=== PATIENT | female | born 1985 | race Caucasian/White ===

== ENCOUNTER 2019-09-03 07:35 | Outpatient (CLI) | payer BC, SELFPAY ==
--- NOTE | ~2019-09-03 | US_ITS ---
US abdomen complete EXAMINATION: US Abdomen Complete INDICATION: Unspecified abdomen pain PROCEDURE: Realtime High Resolution abdomen ultrasound. COMPARISON: No prior studies for comparison FINDINGS: Gallbladder within normal limits. No gallstones, pericholecystic fluid, gallbladder wall t hickening or biliary dilatation. Common bile duct measures 4 mm. Liver echotexture within normal limits without focal mass. Pancreas within normal limits. Pancreati c tail is obscured by bowel gas. Spleen is unremarkeable. Renal echotexture is within normal limits bilaterally without hydronephrosis, contour deforming mass or renal stone. Right kidney measures 9.4 cm. Left kidney measures 9 cm. Visualized aspects of the aorta and IVC are within normal limits. Portal vein is patent. No sonograph ic Merchant's sign indicated by the technologist. IMPRESSION: 1: Unremarkable abdominal ultrasound. Reviewed, dictated and finalized at location A.
== END 2019-09-03 07:36 | disposition home or self-care (01) ==
PROVIDERS: PCP Internal Medicine; Visit Provider Clinical Nurse Specialist
DX: R10.9 Unspecified abdominal pain (principal)
CPT/HCPCS: 76700

== ENCOUNTER → 2021-02-26 01:05 | Outpatient (CLI) | payer BC, SELFPAY ==
[2021-02-26 18:54] LABS: SARS-CoV-2 RNA PCR Positive
== END ==
PROVIDERS: PCP Internal Medicine; Visit Provider Nurse Practitioner
DX: R05.9 Cough, unspecified (principal); U07.1 COVID-19
CPT/HCPCS: C9803; U0003; U0005

== ENCOUNTER 2021-08-09 12:40 | Emergency (ER) | payer BC, SELFPAY ==
--- NOTE | ~2021-08-09 | XR_ITS ---
EXAMINATION: XR ankle LT min 3V DATE: 08/09/2021 13:12 INDICATION: Sided left ankle injury TECHNIQUE: Anteroposterior, oblique, mortise, and lateral views of the left ankle were obtained. COMPARISON: None. FINDINGS: Alignment is normal. No fracture. Joint spaces are well maintained. No ankle joint effusion. The so ft tissues are unremarkable. IMPRESSION: 1. Negative left ankle radiographs. Reviewed, dictated and finalized at location A.
[2021-08-09 12:42] VITALS: BP 126/80; PULSE 104; RESP 16; TEMP 36.6; O2SAT 100
--- NOTE | 2021-08-09 13:23 | ED.GENADULT ---
HPI - General Adult General Chief complaint: Extremity Injury, Lower Stated complaint: fall/ankle injury Time Seen by Provider: 08/09/21 12:48 History of Present Illness HPI narrative: Patient is a 36-year-old female who presents ER with left ankle pain. Patient was walking down her steps and was on the last stair and when she placed her foot down twisted her ankle and felt a pop. Pain with attempting to bear weight. No numbness or tingling. No additional injury. Related Data Home Medications Medication Instructions Recorded Confirmed etonogestrel 0.12 mg-ethinyl 1 vag ring VAGINAL ONCE 05/12/19 02/25/21 estradiol 0.015 mg/24 hr vaginal ring multivitamin,[id number] 1 tablet PO DAILY 05/12/19 02/25/21 Allergies Allergy/AdvReac Type Severity Reaction Status Date / Time erythromycin base Allergy Severe Vomiting Verified 04/07/21 09:57 prednisone AdvReac Herpes Verified 04/07/21 09:57 flare up Review of Systems Musculoskeletal: Musculoskeletal: Reports arthralgias, Reports joint swelling and Denies muscle cramps Integumentary/Breasts: Skin/Breast: Denies erythema and Denies skin ulcer Neurologic: Denies focal weakness and Denies numbness PMFSH Past Medical History Medical History Allergies Chronic headaches Depression History of migraine Ovarian cyst Sebaceous cyst (~07/2020) removed from shoulder Surgical History Surgical History S/P removal of ovarian cyst [place] teeth extracted Family History Family History Father Unknown family medical history Mother Asthma COPD (chronic obstructive pulmonary disease) Grandparent Brain aneurysm Sibling Breast cancer Sibling Breast cancer Social History Social History Smoking packs per day: 0.5 Smoking cigarettes per day: 10.0 Years smoked: 15 Smoking pack-years: 7.50 Smoking status: Former smoker Tobacco type: cigarettes Smoking end date: 03/26/13 Alcohol intake: current Drinks per week: 2 Substance use: never Substance use type: does not use Exam Narrative: GENERAL: Well-appearing, well-nourished, and in no acute distress. HEAD: Normocephalic, atraumatic. HEART: Regular rate and rhythm. Normal peripheral pulses. EXTREMITIES: Left lower extremity with tenderness over the ATFL and base lateral malleolus. No foot tenderness or swelling. No tenderness at the knee or fibular head. Normal range of motion at the knee and ankle on the left. Gross sensation intact. SKIN: Warm, dry, no rash. NEURO: Alert and oriented x3. PSYCH: Normal mood and affect. Course Course Emergency Course: Patient informed of results. She has been provided an Devin wrap. Patient has crutches at home for weightbearing. Will give Ortho follow-up. Vital Signs Vital signs: Vital Signs Temperature 98 F 08/09/21 12:42 Pulse Rate 104 H 08/09/21 12:42 Respiratory Rate 16 08/09/21 12:42 Blood Pressure 126/80 08/09/21 12:42 Pulse Oximetry 100 08/09/21 12:42 Temperature 98 F 08/09/21 12:42 Pulse Rate 104 H 08/09/21 12:42 Respiratory Rate 16 08/09/21 12:42 Blood Pressure 126/80 08/09/21 12:42 Pulse Oximetry 100 08/09/21 12:42 Medical Decision Making Vital Signs Vital Signs: Vital Signs Temperature 98 F 08/09/21 12:42 Pulse Rate 104 H 08/09/21 12:42 Respiratory Rate 16 08/09/21 12:42 Blood Pressure 126/80 08/09/21 12:42 Pulse Oximetry 100 08/09/21 12:42 Temperature 98 F 08/09/21 12:42 Pulse Rate 104 H 08/09/21 12:42 Respiratory Rate 16 08/09/21 12:42 Blood Pressure 126/80 08/09/21 12:42 Pulse Oximetry 100 08/09/21 12:42 Imaging Data Radiologist's impression: ITS Impressions Ankle X-Ray 08/09/21 13:25 IMPRESSION: 1. Negative le
[2021-08-09] MEDS: HYDROcodone/acetaminophen (*CRX) 5-325 MG TABLET 1 TAB PO (13:26)
== END 2021-08-09 14:06 | disposition home or self-care (01) ==
PROVIDERS: Emergency Provider Emergency Medicine; PCP Internal Medicine
DX: S93.402A Sprain of unspecified ligament of left ankle, initial encounter (principal); Z87.891 Personal history of nicotine dependence; X50.1XXA Overexertion from prolonged static or awkward postures, initial encounter
CPT/HCPCS: 73610; 99283; A9270

== ENCOUNTER → 2021-11-16 14:22 | Outpatient (CLI) | payer BC, SELFPAY ==
--- NOTE | ~2021-11-16 | MR_ITS ---
EXAMINATION: MR ankle LT wo con DATE: 11/16/2021 15:05 INDICATION: Left ankle pain TECHNIQUE: Magnetic resonance imaging (MRI) of the left ankle was performed without intravenous contr ast. Sequences included sagittal, coronal, and axial proton-density weighted fast spin echo without a nd with fat saturation. COMPARISON: None. FINDINGS: Medial ankle ligaments: Deep and superficial deltoid ligaments as well as the spring ligament are normal. Lateral ankle ligaments: The anterior and posterior inferior tibiofibular ligaments are normal. The posterior talofibular liga ment is normal. There is prominent thickening and mild increased signal of the anterior talofibular a nd calcaneofibular ligaments consistent with scarring related to chronic sprains. Tendons: Achilles tendon is normal. The peroneus longus and brevis tendons are normal. The tibialis anterior a nd extensor hallucis longus and extensor digitorum longus tendons are normal. The tibialis posterior, flexor digitorum longus and flexor hallucis longus tendons are normal. Plantar fascia: Plantar aponeurosis is normal. Bones/other: Bone alignment is normal with normal marrow signal throughout. No fracture, reactive edema or patholo gic marrow replacing process. Joint spaces are normal. Fluid: Physiologic amount fluid in the joint spaces. No bursitis, tenosynovitis or other abnormal fluid jorge ections. IMPRESSION: 1. Scarring consistent with chronic sprains of the anterior talofibular and calcaneofibular ligaments . Reviewed, dictated and finalized at location A. IMPRESSION: 1. Scarring consistent with chronic sprains of the anterior talofibular and jennifer caneofibular ligaments.
== END ==
PROVIDERS: Visit Provider Student in an Organized Health Care Education/Training Program
DX: M25.572 Pain in left ankle and joints of left foot (principal); M76.72 Peroneal tendinitis, left leg; R91.8 Other nonspecific abnormal finding of lung field
CPT/HCPCS: 73721

== ENCOUNTER 2024-07-23 10:01 | Emergency (ER) | payer BC, SELFPAY ==
--- NOTE | ~2024-07-23 | XR_ITS ---
Lumbosacral Spine: AP and lateral views Clinical History: Pain Findings: The normal lordotic curve is maintained. The vertebral bodies and posterior elements are i ntact. The intervertebral disc spaces are preserved. Mild facet arthropathy present throughout the l umbar spine. The sacroiliac joints are normally outlined. Impression: Mild diffuse facet arthropathy. Reviewed, dictated and finalized at [facility]. Impression: Mild diffuse facet arthropathy.
[2024-07-23 10:07] VITALS: BP 113/75; PULSE 99; RESP 17; TEMP 36.6; O2SAT 100
--- NOTE | 2024-07-23 10:21 | ED.BACK ---
HPI - Back Pain/Injury General Chief Complaint: Back Pain/Injury Stated Complaint: back pain Time Seen by Provider: 07/23/24 10:21 Source: patient, RN notes reviewed and old records reviewed Mode of arrival: ambulatory Limitations: no limitations History of Present Illness HPI Narrative: 39 year old female presents to [facility] with complaints of one week ago she was bent down on floor putting away some dishes and couldn't straighten up. Patient reports that she has history of slipped disc and pain feels similar to previous episode of back pain. Patient reports that she was suppose to have surgery but insurance would not approve it. Patient reports that she does have radiation of pain to buttocks with some pain down right leg to level of knee, denies any tingling or numbness to lower extremities. Patient reports that pain is worse with sitting and ambulating, feels better when lying down. She states that she has be taking Karo back and body, Tylenol and Ibuprofen, using TENS unit and also heat. Patient reports no bowel or bladder difficulty and denies any saddle paraesthesia. MD elicited complaint: back pain Pertinent past history: prior back pain Onset (ago): week(s) (1 week) Pain scale (0-10): 8 Treatments prior to arrival: heat therapy, NSAIDS and other (Karo back and Body, heat, TENS) Work related injury: No Related Data Home Medications ?Medication ?Instructions ?Recorded ?Confirmed ?Last Taken ?Type etonogestrel 0.12 mg-ethinyl 1 vag ring vaginal ONCE 05/12/19 05/30/23 Unknown History estradiol 0.015 mg/24 hr vaginal ring (NuvaRing) multivitamin,cc-qeuw-dantkegp 1 tablet PO DAILY 05/12/19 05/30/23 Unknown History (Complete Multivitamin tablet) aripiprazole 5 mg tablet (Abilify) 5 mg PO DAILY 06/07/22 05/30/23 Unknown History lorazepam 0.5 mg tablet 0.5 mg PO BID PRN 05/30/23 05/30/23 Unknown History vilazodone 40 mg tablet 40 mg PO DAILY 05/30/23 05/30/23 Unknown History Allergies Allergy/AdvReac Type Severity Reaction Status Date / Time erythromycin base AdvReac Severe Vomiting Verified 07/23/24 10:11 prednisone AdvReac Herpes Verified 07/23/24 10:11 flare up Review of Systems Review of Systems: CONSTITUTIONAL: Denies fever, chills, or sweats. EYES: Denies visual changes, redness, or discharge. ENT: Denies rhinorrhea, congestion, sore throat, or otalgia. CARDIOVASCULAR: Denies chest pain, palpitations, or edema. RESPIRATORY: Denies cough or dyspnea. GASTROINTESTINAL: Denies abdominal pain, nausea, vomiting, or diarrhea. GENITOURINARY: Denies dysuria or hematuria. SKIN: Denies rash or itching. MUSCULOSKELETAL: Reports lumbar back pain right greater than left, reports pain to buttock with radiation down right leg stops at knee, or myalgia. NEUROLOGIC: Denies headache, numbness, or weakness. PSYCHIATRIC: Reports history of anxiety or depression. All systems reviewed & are unremarkable except as noted in HPI and below PMFSH Past Medical History Medical History Sebaceous cyst (~07/2020) removed from shoulder History of migraine Chronic headaches Depression Allergies Ovarian cyst Surgical History Surgical History S/P removal of ovarian cyst [place] teeth extracted Family History Family History Father Unknown family medical history Mother Asthma COPD (chronic obstructive pulmonary disease) Grandparent Brain aneurysm Sibling Breast cancer Sibling Breast cancer Social History Social History Smoking packs per day: 0.5 Smoking cigarettes per day: 10.0 Years smoked: 15 Smoking pack-years: 7.50 Smoking status: Former smoker Tobacco type: cigarettes Smoking end date: 03/26/13 Alcohol intake: current Drinks per week: 2 Substance use: never Substance use type: does not use Lack of Transportation: No Lack of Food: Never True Current Housing: I Have Housing Concerned About Future Housing: No Difficulty Paying Gas/Electric Bills: No Difficulty Paying for Meds: No Currently Unemployed: No Education: High School Diploma/GED Difficulty w/ Childcare or Family Care: No Comments At time of signature, agree with nursing past medical, surgical, social and family history. There is no relevant family history pertinent to the presenting complaint Exam Narrative: GENERAL: Well-appearing, well-nourished, and in some acute distress. HEAD: Normocephalic, atraumatic. EYES: PERRLA and EOMI. ENT: Nares clear, no rhinorrhea or epistaxis. Mucous membranes moist.TM's normal, throat pink with no swelling NECK: Supple.no lymphadenopathy CHEST: Clear to auscultation. No respiratory distress.DAR 100% on room air HEART: Regular rate and rhythm. No murmur heard. Normal peripheral pulses. ABDOMEN: Soft, nontender, nondistended, normal active bowel sounds. EXTREMITIES: Normal range of motion. No edema. Pain to lumbar back SI regions with radiation into buttocks bilaterally and down right leg to level of knee, no midline pain or paraspinal tenderness noted.denies any difficulty passing urine or stools or any saddle paraesthesia.no tingling or numbness to extremities, states pain increases with sitting and ambulation SKIN: Warm, dry, no rash. NEURO: No focal deficits. Alert and oriented x3. Course Course Emergency Course: Patient is aware of diagnosis, understands and agrees to treatment plan.? Anticipatory guidance given.? Patient agrees to follow-up as directed and is aware of reasons to seek care at the emergency department. Portions of this record may have been created with voice recognition software Level of Care: Express Care Visit Vital Signs Vital signs: Vital Signs Temperature 36.6 C 07/23/24 10:07 Pulse Rate 99 07/23/24 10:07 Respiratory Rate 17 07/23/24 10:07 Blood Pressure 113/75 07/23/24 10:07 Pulse Oximetry 100 07/23/24 10:07 Oxygen Delivery Room Air 07/23/24 10:07 Temperature 36.6 C 07/23/24 10:07 Pulse Rate 99 07/23/24 10:07 Respiratory Rate 17 07/23/24 10:07 Blood Pressure 113/75 07/23/24 10:07 Pulse Oximetry 100 07/23/24 10:07 Oxygen Delivery Room Air 07/23/24 10:07 Reviewed MDM - Back Pain/Injury Differential Diagnosis Differential diagnosis: Likely lumbar radiculopathy, sciatica, strain of lumbar region and other (facet arthropathy) Medical Records Attestation: I reviewed the patient's medical records. Imaging Data Attestation: I personally reviewed and interpreted this imaging study as follows: My impression: mild diffuse facet arthropathy Radiologist's impression: [address] [address] XRay Report Signed Patient: Sunita Menjivar : 1985 MR#: [id number] Age: 39 Acct:[id number] Loc: [facility] ADM Date: 07/23/24Attending Dr: Ordering Physician: Phylicia Stoeks APRN Date of Service: 07/23/24 Procedure(s): XR lumbar spine 2-3V Accession Number(s): [id number] cc: Phylicia Stokes APRN; Amanda Locke APRN~ Lumbosacral Spine: AP and lateral views Clinical History: Pain Findings: The normal lordotic curve is maintained. The vertebral bodies and posterior elements are intact. The intervertebral disc spaces are preserved. Mild facet arthropathy present throughout the lumbar spine. The sacroiliac joints are normally outlined. Impression: Mild diffuse facet arthropathy. Reviewed, dictated and finalized at location M. Please be advised this is a medical document. It is intended for [id number] communication. It is written in medical language and may contain unfamiliar abbreviations or verbiage. Medical documents are intended to carry relevant information, facts as evident, and the clinical opinion of the practitioner at the time of the encounter. This report may have been done utilizing a voice recognition system. Attempts have been made to correct errors. However, there may be uncorrected grammatical, spelling, and recognition errors present. The file time of this note does not necessarily represent the time of service. Dictated By: Erik Saldaña MD 07/23/24 1053 Signed By: <Electronically signed by Erik Saldaña MD in OV> Discharge Plan Discharge Clinical Impression: Lumbar back pain Sciatica Qualifiers: Laterality: bilateral Qualified Code(s): M54.31 - Sciatica, right side; M54.32 - Sciatica, left side Patient Disposition: Home Condition: Stable Instructions: Antibiotic Form, Back Pain (ED) Additional Instructions: Ice and heat to the area for 20-30 minutes Gentle stretching exercises Gentle massage Caution with lifting, bending, stooping, twisting Avoid pushing, pulling take muscle relaxants as directed--caution drowsiness and no driving or alcohol Anti-inflammatory medicine as directed--take with food He may take the muscle relaxant and anti-inflammatory at the same time. Follow-up with your PCP if not improving in 5-7 days ibuprofen 400-600 mg 3 times daily with food may take Tylenol for breakthrough pain If your symptoms persist, change or worsen significantly before you can contact your personal physician then please, without delay, go to the emergency department for further evaluation. Follow-up with PCP in 7-10 days or sooner if needed Patient Language: Kiswahili Prescriptions: New cyclobenzaprine 10 mg tablet 10 mg PO TID PRN (Reason: muscle spasm) Qty: 20 0RF Rx Instructions: no driving while taking absolutely no alcohol No Action bupropion HCl [Wellbutrin SR] 150 mg tablet sustained-release 12 hr 300 mg PO DAILY Qty: 90 1RF aripiprazole [Abilify] 5 mg tablet 5 mg PO DAILY vilazodone 40 mg tablet 40 mg PO DAILY lorazepam 0.5 mg tablet 0.5 mg PO BID PRN etonogestrel-ethinyl estradiol [NuvaRing] 0.12-0.015 mg/24 hr ring 1 vag ring VAGINAL ONCE Complete Multivitamin Tablet 1 tablet PO DAILY Follow-up/Referrals: Amanda Locke, PODIATRIC MEDICINE PROFESSOR-C [Primary Care Provider] - Stand Alone Forms: Work/School Release IP Time of Disposition: 11:15 Quality Dunbar Coma Scale Eyes: Open Verbal: Oriented and Alert Motor: Follows Commands Dunbar Coma Total Score: 15
--- OUTSIDE RECORDS SUMMARY | 2024-07-23 11:03 | XMS_ITS | Clinical Summary ---
Author Organization [facility] Address [facility] [place] [address] Care Team Providers Care Tool Design Draftsperson Name Role Phone Unavailable Primary Care Provider Unavailabl e Source Comments [facility],non-owned Affiliates and Associated Physician Practices is amultiple site organization consisting of ambulatory clinics and hospital sitesin [place], [place], [place] and [place]. This disclosure is being madepursuant to the Care Everywhere program and may not contain all information available regarding this patient. Last updated 17[facility] [employer] Allergies Active Allergy Reactions Criticality Noted Date Comments Erythromycin Nausea and/or Vomiting 11/24/2016 Medications * Be aware that medications may not be up to date on this document. Alwaysverify current medications with the patient. etonogestrel-et hinyl estradiol (NUVARING) 0.12-0.015 MG/24HR vaginal ring Insert 1 Device into the vagina as directed Remove ring after 3 weeks, followed by 1 week-rest, then insert new ring Active Sertraline HCl (ZOLOFT PO) Active Social History Tobacco Use Types Packs/Day Years Used Date Smoking Tobacco: Never Smokeless Tobacco: Never Comments Unknown Sex and Gender Information Value Date Recorded Sex Assigned at Not on file Legal Sex Female 12:25 PM CDT Gender Identity Not on file Sexual Orientation Not on file Last Filed Vital Signs Vital Sign Reading Time Taken Comments Blood Pressure 116/84 11/24/2016 5:33 PM CDT Pulse 89 11/24/2016 5:33 PM CDT Temperature 36.8 C (98.3 F) 11/24/2016 5:33 PM CDT Respiratory Rate 16 11/24/2016 5:33 PM CDT Oxygen Saturation 99% 11/24/2016 5:33 PM CDT Inhaled Oxygen Concentration - - Weight 65.8 kg (145 lb) 11/24/2016 5:33 PM CDT Height 160 cm (5' 3 ) 11/24/2016 5:33 PM CDT Body Mass Index 25.69 11/24/2016 5:33 PM CDT Plan of Treatment Health Maintenance Due Date Last Done Comments HIV SCREENING 2002 HEPATITIS C SCREENING 05/09/2005 DTAP/TDAP/TD VACCINES (1 - Tdap) 2006 HEPATITIS B VACCINE (1 of 3 - 19+ 3-dose series) 2006 COVID-19 VACCINE (1 - 2023-2 5 season) 2023 DEPRESSION SCREENING 03/26/2024 INFLUENZA VACCINE (Season Ended) 2024 ZOSTER VACCINE (1 of 2) 2037 HIB VACCINE Aged Out No longer eligi ble based on patient's age to complete this topic HPV VACCINE Aged Out No longer eligi ble based on patient's age to complete this topic MENINGOCOCCAL (Group B) VACC INE SHARED DECISION-MAKING Aged Out No longer eligibl e based on patient's age to complete this topic MENINGOCOCCAL GROUPS A/C/Y/W VACCINE Aged Out No longer eligible b ased on patient's age to complete this topic PNEUMOCOCCAL VACCINE Aged Out No long er eligible based on patient's age to complete this topic Insurance [employer]
--- OUTSIDE RECORDS SUMMARY | 2024-07-23 11:03 | XMS_ITS | Clinical Summary ---
Author Organization [facility] Address [address] [place] [address] Phone Care Team Providers Care Horticultural Services Supervisor Name Role Phone Darin Benavidez DO Primary Care Provider Medications Etonogestrel-Et hinyl Estradiol (NuvaRing) 0.12-0.015 MG/24HR RING 1 Each by Vaginal route. Active Active Problems Problem Noted Date Diagnosed Date Adjustment disorder with depressed mood 04/14/19 21 Social History Tobacco Use Types Packs/Day Years Used Date Smoking Tobacco: Never Smokeless Tobacco: Never Alcohol Use Standard Drinks/Week Comments Yes 0 (1 standard drink = 0.6 oz pur e alcohol) 1 x week, consuming 6-8 beers PHQ-2 Answer Date Recorded Total Score - Questions 1-9 0 06/0 11/2020 Sexually Active Control Partners Comments Yes Male Comments Unknown Sex and Gender Information Value Date Recorded Sex Assigned at Not on file Legal Sex Female 11:44 AM CLINICAL NEUROPSYCHOLOGIST Gender Identity Not on file Sexual Orientation Not on file Plan of Treatment Health Maintenance Due Date Last Done Comments Hepatitis C Virus (HCV) Screening 1985 TdaP Immunization 1985 Hepatitis B Immunization (1 of 3 - 19+ 3-dose series) 2006 Influenza Immunization (#1) 2023 SARS-COV-2 Immunization ( - 2023-25 season) 2023 Respiratory Syncytial Virus (RSV) Immunization (Adult) (1 - 1-dose 75+ series) 2062 Meningococcal Immunization (ACWY) Aged Out No longer eligible based on patient's age to complete this topic Pneumococcal Immunization Combined Aged Out No longer eligible based on patient's age to complete this topic Rotavirus Immunization Aged Out No lo nger eligible based on patient's age to complete this topic Goals Goal Patient Goal Type Associated Problems Recent Progress Patient-Stated? Author Behavioral Health Behavioral Health On track(2021 5:35 PM CLINICAL NEUROPSYCHOLOGIST) Yes Walter Mckenna LCSW Note: I want to be able to manage my mood better and cope better with relationship issues within the next one year Goal Reviewed today with: patient Readiness to change: Ready to change Department associated with goal: [facility] Steps to achieve goal: Patient counseled on emotional regulation during 45 min individual /couple therapy sessions, 1-2 times per month Patient counseled on healthy communication and problem-solving skills during 45 min individual/couple therapy sessions, 1-2 times per month Behavioral Health Behavioral Health On track(2021 5:35 PM CLINICAL NEUROPSYCHOLOGIST) No Walter Mckenna LCSW Note: Goal: Patient will be able to report improved mood and coping skills for relationship/job stressors to an acceptable level within the next one year Goal Reviewed today with: patient Readiness to change: Ready to change Department associated with goal: [facility] Steps to achieve goal: Patient counseled on coping skills for depression during 45 min individual/couple therapy sessions, 1-2 times per month Patient counseled on coping skills for stress during 45 min individual/couple therapy sessions, 1-2 times per month Behavioral Health Behavioral Health On track(2021 5:35 PM CLINICAL NEUROPSYCHOLOGIST) No Walter Mckenna LCSW Note: Goal: Sunita and Sid will be able to report improved communication, along with improved sense of mutual respect and appreciation, along with gained insight into the concept of accepting influence. Goal Reviewed with: patient and significant other Readiness to change: Ready to change Department associated with goal: [facility] Steps to achieve goal: The couple will be counseled on concepts of accepting influence and Five Love Languages The couple will be counseled on concepts of expressing feelings and not bottling up issues until an explosion Insurance [email or web address] Care Teams Horticultural Services Supervisor Relationship Specialty Start Date End Date Darin Benavidez DO [facility] [facility] [place] [address] PCP - General Internal Medicine 03/30/20
--- OUTSIDE RECORDS SUMMARY | 2024-07-23 11:03 | XMS_ITS | Clinical Summary ---
Author Organization [facility] Address [address] [place] [id number] Care Team Providers Care Mold Press Operator Name Role Phone Radha Amos MD Primary Care Provider [phone] Social History Tobacco Use Types Packs/Day Years Used Date Smoking Tobacco: Never Assessed Comments Unknown Sex and Gender Information Value Date Recorded Sex Assigned at Not on file Legal Sex Female 4:39 PM CDT Gender Identity Not on file Sexual Orientation Not on file Plan of Treatment Health Maintenance Due Date Last Done Comments Cervical Cancer Screening Pa p Smear (Age 30 to 64) Every 3 Years 1987 Annual Physical 1990 Hepatitis C 2005 DTaP, Tdap and Td Vaccines ( 1 - Tdap) 2006 Hepatitis B Vaccines (1 of 3 - 19+ 3-dose series) 2006 Cervical Cancer Screening Pa p with HPV Testing (Age 30 to 64) Every 5 Years 2017 Cervical Cancer Screening with HPV 2017 COVID-19 Vaccine (2023-2 5 season) 2023 HPV Vaccines Aged Out No longer eligi ble based on patient's age to complete this topic Meningococcal B Vaccine Aged Out No l onger eligible based on patient's age to complete this topic Meningococcal Vaccine Aged Out No amanda raffy eligible based on patient's age to complete this topic Pneumococcal Vaccine: Pediat rics (0 to 5 Years) and At-Risk Patients (6 to 49 Years) Aged Out No longer eligible b ased on patient's age to complete this topic RSV Immunizations Under 20 Months Aged Out No longer eligible based on patient's age to complete this topic Care Teams Mold Press Operator Relationship Specialty Start Date End Date Radha Amos MD PCP - General 02/02/16
== END 2024-07-23 11:18 | disposition home or self-care (01) ==
PROVIDERS: Emergency Provider Registered Nurse; PCP Clinical Nurse Specialist
DX: M54.50 Low back pain, unspecified (principal); M54.31 Sciatica, right side; Z87.891 Personal history of nicotine dependence; F32.A Depression, unspecified
CPT/HCPCS: 72100; 99213; G0463